=== PATIENT | male | born 1990 | race African-American/Black ===

== ENCOUNTER 2020-05-02 15:34 | Emergency (ER) | payer BC ==
[~2020-05-02] VITALS: Ht 185.4 cm; Wt 163.3 kg
[~2020-05-02 15:34] MED LIST: NOHOMEMEDICATIONS; PENICILLIN VK250 MG PO
[2020-05-02 15:46] VITALS: BP 184/96
[2020-05-02] MEDS ORDERED: IBUPROFEN 600600 M1 PO (16:15)
== END 2020-05-02 16:54 | disposition home or self-care (01) ==
LOC: ER 15:34
DX: S09.93XA Unspecified injury of face, initial encounter (principal); R59.0 Localized enlarged lymph nodes; X58.XXXA Exposure to other specified factors, initial encounter; Y93.89 Activity, other specified; Y92.89 Other specified places as the place of occurrence of the external cause; Y99.8 Other external cause status